=== PATIENT | female | born 1960 | race Caucasian/White ===

== ENCOUNTER → 2021-07-01 | Outpatient (CLI) | payer BC ==
[2021-07-01 08:11] LABS: BILIRUBIN,TOTAL 0.5 MG/DL (0.1-1.0); CALCIUM 9.3 MG/DL (8.5-10.1); CREATININE SERUM 0.86 MG/DL (0.60-1.30); POTASSIUM 3.6 MMOL/L (3.6-5.0); TOTAL PROTEIN 7.4 GM/DL (6.4-8.2)
[2021-07-01 08:12] LABS: ALBUMIN 3.9 GM/DL (3.2-4.5)
== END ==
LOC: LAB FS 07:12
PROVIDERS: ATTEND Family Medicine
DX: Z00.00 Encounter for general adult medical examination without abnormal findings (principal)
CPT/HCPCS: 36415; 80053; 80061

== ENCOUNTER → 2021-07-27 | Outpatient (CLI) | payer BC | LOC: LAB FS 18:20 | PROVIDERS: ATTEND Family Medicine | DX: R73.09 Other abnormal glucose (principal) | CPT/HCPCS: 36415; 83036 ==

== ENCOUNTER 2023-01-17 19:34 | Emergency (ER) | payer BC ==
[~2023-01-17] VITALS: Ht 177 cm; Wt 117.5 kg
--- NOTE | 2023-01-17 19:45 | ED Upper Extremity ---
General Chief Complaint: Trauma-Non Activation Stated Complaint: LEFT HAND INJ|AND LEFT FOOT INJ Source: patient Exam Limitations: no limitations History of Present Illness Date Seen by Provider: Jan 17, 2023 Time Seen by Provider: 19:37 Initial Comments 62-year-old female presents to the emergency department today for left little finger injury after she fell. She states her shoe went out from under her causing her to fall. She also has an abrasion to her left great toe but she is bearing weight and is too concerned about it. Her immunizations are up-to-date. All other systems reviewed and negative except documented per HPI. Voice recognition software was used to help create this chart Allergies and Home Medications Patient Home Medication List Home Medication List Reviewed: Yes Review of Systems Constitutional: see HPI Past Ptulxoj-Dbfcii-Pejevk Hx Patient Social History Tobacco Use?: No Use of E-Cig and/or Vaping dev: No Substance use?: No Alcohol Use?: No Physical Exam Vital Signs Vital Signs - First Documented 01/17/23 19:42 Temp 37.1 Pulse 86 Resp 16 B/P (MAP) 160/80 (106) Pulse Ox 95 O2 Delivery Room Air Capillary Refill : Height, Weight, BMI Height: '" Weight: lbs. oz. kg; BMI Method: General Appearance: WD/WN, no apparent distress HEENT: normal ENT inspection, pharynx normal Neck: non-tender, supple Cardiovascular: regular rate, rhythm, no murmur Respiratory: chest non-tender, no accessory muscle use Shoulder: normal inspection, non-tender, no evidence of injury Elbow/Forearm: normal inspection, non-tender, no evidence of injury Wrist: Yes normal inspection, Yes non-tender, Yes no evidence of injury Hand: Left (Left little finger is held in flexion secondary to pain. There is no obvious deformity. Neurovascular motor and sensory intact.) Neurologic/Tendon: normal sensation, normal motor functions Skin: other (Abrasion to the left medial great toe.) Progress/Results/Core Measures Results/Orders My Orders Orders - IVON FELIPE DO Hand 3 View Left (01/17/23 19:43) Hand 3 View Left (01/17/23 19:55) Vital Signs/I&O 01/17/23 19:42 Temp 37.1 Pulse 86 Resp 16 B/P (MAP) 160/80 (106) Pulse Ox 95 O2 Delivery Room Air Departure Communication (Admissions) Left little finger was reduced under direct traction without complication. Patient tolerated well. Remained neurovascular and sensory intact. Discharged in stable condition. Impression Primary Impression: Finger dislocation Qualified Codes: S63.259A - Unspecified dislocation of unspecified finger, initial encounter Disposition: HOME, SELF-CARE Condition: Stable Departure-Patient Inst. Referrals: RONNIE RAMOS MD (PCP) Primary Care Physician ROMARIO LEE MD Patient Instructions: Finger Dislocation ED Add. Discharge Instructions: Maintain the tape between her 2 fingers for the next couple of days. Follow-up with orthopedics. Return to the emergency department for any severe concerns. All discharge instructions reviewed with patient and/or family. Voiced understanding. IVON FELIPE DO Jan 17, 2023 19:45
[2023-01-17 20:05] VITALS: BP 160/80
--- NOTE | 2023-01-17 20:13 | Diagnostic Imaging Report ---
EXAMINATION: PA view of the left hand TECHNIQUE: PA view of the left hand. HISTORY: L little finger injury COMPARISON: None available. FINDINGS: Dislocation of the proximal interphalangeal joint of the left 5th pinky. No acute fracture identified. IMPRESSION: Dislocation of the proximal interphalangeal joint of the left 5th pinky. No acute fracture identified. Dictated by: Dictated on workstation # [id number]
--- NOTE | 2023-01-17 20:15 | Diagnostic Imaging Report ---
EXAMINATION PA view of the left hand obtained. TECHNIQUE:. PA left hand obtained. HISTORY: reduction,, dislocation of the left 5th digit. COMPARISON: Left hand radiograph on the same day.. FINDINGS: Interval reduction of the proximal interphalangeal joint of the left pinky. No fracture identified. IMPRESSION: Successful reduction of the proximal interphalangeal joint left pinky. No fracture. Dictated by: Dictated on workstation # [id number]
== END 2023-01-17 20:05 | disposition home or self-care (01) ==
LOC: EDUNIT# 19:34 → ER FS 19:37
DX: S63.287A Dislocation of proximal interphalangeal joint of left little finger, initial encounter (principal); S90.412A Abrasion, left great toe, initial encounter; W19.XXXA Unspecified fall, initial encounter
CPT/HCPCS: 73130